=== PATIENT | male | born 1990 | race Two or more races ===

== ENCOUNTER 2020-02-07 19:16 | Emergency (ER) | payer SELFPAY ==
[~2020-02-07] VITALS: Ht 162.6 cm; Wt 81.6 kg
--- NOTE | 2020-02-07 19:45 | NUR ---
ED Nurse Note: Pt walked josé miguel the Ed due to shaking,chils and slight chest pain x 2 days. pt stated; he his roommate tested covid postive. pt has not beeen tested. According to the pt , he drinks 3-5 beers every 3days. pt is A&Ox4, awake ,and verbal. vitals; Bp 132/72 Hr 128 RR 23 O2 97 . No sob,cough,pain and fever at the moment.
[2020-02-07 19:50] VITALS: BP 138/87
[2020-02-07] MEDS ORDERED: LORazepam Inj 2mg/ml 1ml IV ONE ×2 (20:15→21:45)
[2020-02-07] MEDS ORDERED: Thiamine HCl 100 MG in D5W 55 ML IVPB ONE (20:15)
--- NOTE | 2020-02-07 20:18 | Emergency Room Report ---
History of Present Illness General Chief Complaint: General Complaint Source: Patient (Sourav Cherry) Present Illness HPI 30-year-old male with history of alcohol abuse here complaining of fever and chills as well as palpitation x2 days. Patient reports that he was living with a roommate who is positive for COVID-19 however he has not been living with him. Patient last exposed to roommate 5 days ago. Denies any nausea vomiting however complains of diarrhea. Reports that he used to drink 2-3 beers every day however has not been drinking since this past Friday. Denies any drug use. Denies tobacco smoke. Denies chest pain or shortness of breath. Denies diffuse abdominal pain. Patient speaking full sentences, memory appears to be intact. (Sourav Cherry) Allergies: Coded Allergies: No Known Allergies (Unverified , 02/07/20) COVID-19 Screening Contact w/high risk pt: Yes Experienced COVID-19 symptoms?: Yes COVID-19 Testing performed CHILD DEVELOPMENT ASSISTANT: No COVID-19 Screening: Negative COVID-19 (Sourav Cherry) Patient History Past Medical History: see triage record Past Surgical History: none Pertinent Family History: none Immunizations: UTD Reviewed Nursing Documentation: PMH: Agreed; PSxH: Agreed (Sourav Cherry) Nursing Documentation-PMH Past Medical History: No Stated History (Sourav Cherry) Review of Systems All Other Systems: negative except mentioned in HPI (Sourav Cherry) Physical Exam Vital Signs Date Time Temp Pulse Resp B/P (MAP) Pulse Ox O2 Delivery O2 Flow Rate FiO2 02/07/20 19:32 98.1 134 16 152/84 (106) 96 Room Air Sp02 EP Interpretation: reviewed, abnormal - Tachycardic General Appearance: alert, non-toxic, mild distress Head: normocephalic, atraumatic Eyes: bilateral eye normal inspection, bilateral eye PERRL ENT: EOM grossly intact, no angioedema, normal voice Neck: full range of motion, supple/symm/no masses Respiratory: no respiratory distress, no retraction, no accessory muscle use Cardiovascular #2: 2+ carotid (R), 2+ carotid (L), 2+ radial (R), 2+ radial (L), 2+ dorsalis pedis (R), 2+ dorsalis pedis (L) Gastrointestinal: normal bowel sounds, non tender, soft, non-distended, no guarding, no rebound Rectal: deferred Genitourinary: no CVA tenderness Musculoskeletal: back normal, pelvis stable, gait/station normal Neurologic: alert, motor strength/tone normal, oriented x3, sensory intact, responsive, speech normal Psychiatric: memory normal, no suicidal/homicidal ideation, anxious Skin: no rash, normal color Lymphatic: no adenopathy (Sourav Cherry) Medical Decision Making PA Attestation All diagnoses and treatment plans were reviewed and discussed with my supervising physician Dr. Luis (Sourav Cherry) Diagnostic Impression: Primary Impression: Alcohol withdrawal ER Course 30-year-old male with history of alcohol abuse here complaining of fever and chills as well as palpitation x2 days. Patient reports that he was living with a roommate who is positive for COVID-19 however he has not been living with him. Patient last exposed to roommate 5 days ago. Denies any nausea vomiting however complains of diarrhea. Reports that he used to drink 2-3 beers every day however has not been drinking since this past Friday. Denies any drug use. Denies tobacco smoke. Denies chest pain or shortness of breath. Denies diffuse abdominal pain. Patient speaking full sentences, memory appears to be intact. Ddx considered but are not limited to: Covid infection, alcohol intoxication with altered level of consciousness, alcohol intoxication causing pancreatitis, alcohol abuse, multi drug use and alcohol intoxication Vital signs: are WNL, pt. is afebrile H&PE are most consistent with: alcohol withdrawal ORDERS: CXR, CBC, CMP, UA, tox screen, troponin, ETOH serum ER intervention: NS bolus, folate, thiamine, Ativan I signed out the patient to Dr. Luis at 8:30PM (Sourav Cherry) ER Course Assumed care of the patient from the previous provider at approximately 2030. Please refer to initial note for full history and physical exam. Briefly, 30-year-old male history of regular alcohol use presents for evaluation of shakiness, chills and diarrhea. Was regularly using alcohol until 3 days ago. Roommate is positive for COVID-19. He denies shortness of breath or cough. Mild URI symptoms. Labs are returned within normal limits. Patient improved after receiving IV Ativan though still mildly tremulous and given another dose. X-ray shows no infiltrate. Patient should obtain outpatient COVID-19 testing and discussed this with him as well as instructed him to maintain quarantine precautions until tested. Will start on Librium for control of his tremors and withdrawal symptoms. Also prescribed thiamine and folate. Refer to outpatient alcohol abuse resources. Instructed not to drive or operate any machinery. Instructed to return with new or worsening symptoms. Laboratory Tests Test 02/07/20 20:20 02/07/20 20:25 White Blood Count 10.0 K/UL (4.8-10.8) Red Blood Count 5.38 M/UL (4.70-6.10) Hemoglobin 16.9 G/DL (14.2-18.0) Hematocrit 46.3 % (42.0-52.0) Mean Corpuscular Volume 86 FL (80-99) Mean Corpuscular Hemoglobin 31.4 PG (27.0-31.0) H Mean Corpuscular Hemoglobin Concent 36.5 G/DL (32.0-36.0) H Red Cell Distribution Width 14.6 % (11.6-14.8) Platelet Count 152 K/UL (150-450) Mean Platelet Volume 7.1 FL (6.5-10.1) Neutrophils (%) (Auto) 74.0 % (45.0-75.0) Lymphocytes (%) (Auto) 15.4 % (20.0-45.0) L Monocytes (%) (Auto) 9.0 % (1.0-10.0) Eosinophils (%) (Auto) 0.5 % (0.0-3.0) Basophils (%) (Auto) 1.2 % (0.0-2.0) Sodium Level 141 MMOL/L (136-145) Potassium Level 3.7 MMOL/L (3.5-5.1) Chloride Level 103 MMOL/L (98-107) Carbon Dioxide Level 25 MMOL/L (21-32) Anion Gap 13 mmol/L (5-15) Blood Urea Nitrogen 20 mg/dL (7-18) H Creatinine 1.1 MG/DL (0.55-1.30) Estimated Glomerular Filtration Rate > 60 mL/min (>60) Glucose Level 129 MG/DL (74-106) H Calcium Level 9.3 MG/DL (8.5-10.1) Total Bilirubin 0.9 MG/DL (0.2-1.0) Aspartate Amino Transferase (AST) 59 U/L (15-37) H Alanine Aminotransferase (ALT) 88 U/L (12-78) H Alkaline Phosphatase 75 U/L (46-116) Troponin I 0.009 ng/mL (0.000-0.056) Total Protein 9.2 G/DL (6.4-8.2) H Albumin 4.7 G/DL (3.4-5.0) Globulin 4.5 g/dL Albumin/Globulin Ratio 1.0 (1.0-2.7) Serum Alcohol < 3 mg/dL Urine Color Yellow Urine Appearance Slightly cloudy Urine pH 6 (4.5-8.0) Urine Specific [place] 1.030 (1.005-1.035) Urine Protein 4+ (NEGATIVE) H Urine Glucose (UA) Negative (NEGATIVE) Urine Ketones 2+ (NEGATIVE) H Urine Blood Negative (NEGATIVE) Urine Nitrite Negative (NEGATIVE) Urine Bilirubin 1+ (NEGATIVE) H Urine Ictotest Negative (NEGATIVE) Urine Urobilinogen 12 MG/DL (0.0-1.0) H Urine Leukocyte Esterase 1+ (NEGATIVE) H Urine RBC 0-2 /HPF (0 - 0) H Urine WBC 5-10 /HPF (0 - 0) H Urine Squamous Epithelial Cells Occasional /LPF Urine Bacteria Few /HPF (NONE) Urine Mucus Moderate /LPF (NONE/OCC) H Urine Opiates Screen Negative (NEGATIVE) Urine Barbiturates Screen Negative (NEGATIVE) Phencyclidine (PCP) Screen Negative (NEGATIVE) Urine Amphetamines Screen Negative (NEGATIVE) Urine Benzodiazepines Screen Negative (NEGATIVE) Urine Cocaine Screen Negative (NEGATIVE) Urine Marijuana (THC) Screen Negative (NEGATIVE) (Carson Luis MD) EKG Diagnostic Results Rate: tachycardiac Rhythm: other - Tachycardic ST Segments: no acute changes Other Impression No acute ST changes (Sourav Cherry) Troponin ordered: Yes (Carson Luis MD) Chest X-Ray Diagnostic Results Chest X-Ray Diagnostic Results : Chest X-Ray Ordered: Yes # of Views/Limited/Complete: 1 View Indication: Other EP Interpretation: Yes PA Xray: Interpretation reviewed, by supervising MD, and agrees with findings. Interpretation: no consolidation, no effusion, no pneumothorax, no acute cardiopulmonary disease Impression: No acute disease Electronically Signed by: Sourav Harper PA-C (Sourav Cherry) Chest X-Ray Diagnostic Results : Chest X-Ray Ordered: Yes Indication: Other - Tachycardia EP Interpretation: Yes Interpretation: no consolidation, no effusion, no acute cardiopulmonary disease Impression: No acute disease Electronically Signed by: Electronically signed by Dr. Carson Luis MD (Carson Luis MD) Last Vital Signs Date Time Temp Pulse Resp B/P (MAP) Pulse Ox O2 Delivery O2 Flow Rate FiO2 02/07/20 19:32 98.1 134 16 152/84 (106) 96 Room Air (Sourav Cherry) Disposition: HOME, SELF-CARE Condition: Stable Scripts Chlordiazepoxide Hcl* (LIBRIUM*) 10 Mg Capsule 10 MG ORAL THREE TIMES A DAY, #15 CAP 0 Refills Prov: Carson Luis MD 02/07/20 Folic Acid* (FOLIC ACID*) 1 Mg Tablet 1 MG ORAL DAILY for SUPPLEMENT, #30 TAB Prov: Carson Luis MD 02/07/20 Thiamine Hcl* (VITAMIN B-1*) 100 Mg Tablet 100 MG ORAL DAILY, #30 TAB 0 Refills Prov: Carson Luis MD 02/07/20 Referrals: NOT CHOSEN [facility]/,REFERRING (PCP) Sourav Cherry Feb 07, 2020 20:17 Carson Luis MD Feb 07, 2020 20:38
[2020-02-07 20:51] LABS: BASOPHILS % (AUTO) 1.2 % (0.0-2.0); EOSINOPHILS % (AUTO) 0.5 % (0.0-3.0); HEMATOCRIT 46.3 % (42.0-52.0); HEMOGLOBIN 16.9 G/DL (14.2-18.0); LYMPHOCYTES % (AUTO) 15.4 % (20.0-45.0); MEAN CORPUSCULAR VOLUME 86 FL (80-99); PLATELET COUNT 152 K/UL (150-450); RED BLOOD COUNT 5.38 M/UL (4.70-6.10); RED CELL DISTRIBUTION WIDTH 14.6 % (11.6-14.8)
[2020-02-07 21:01] LABS: APPEARANCE,URINE SLIGHTLY CLOUDY; BILIRUBIN, URINE 1+ (NEGATIVE); GLUCOSE, URINE (UA) NEGATIVE (NEGATIVE); KETONES,URINE 2+ (NEGATIVE); LEUKOCYTE ESTERASE ,URINE 1+ (NEGATIVE); NITRITE,URINE NEGATIVE (NEGATIVE); PH,URINE 6 (4.5-8.0); PROTEIN,URINE 4+ (NEGATIVE); UROBILINOGEN,URINE 12 MG/DL (0.0-1.0)
[2020-02-07 21:07] LABS: COLOR,URINE YELLOW
[2020-02-07 21:15] LABS: ANION GAP 13 mmol/L (5-15); BLOOD UREA NITROGEN 20 mg/dL (7-18); CALCIUM 9.3 MG/DL (8.5-10.1); CARBON DIOXIDE 25 MMOL/L (21-32); CHLORIDE 103 MMOL/L (98-107); CREATININE 1.1 MG/DL (0.55-1.30); POTASSIUM 3.7 MMOL/L (3.5-5.1); SODIUM 141 MMOL/L (136-145)
[2020-02-07 21:19] LABS: ALANINE AMINOTRANSFERASE 88 U/L (12-78); ALBUMIN 4.7 G/DL (3.4-5.0); ALKALINE PHOSPHATASE 75 U/L (46-116); ASPARTATE AMINO TRANSFERASE 59 U/L (15-37); BILIRUBIN,TOTAL 0.9 MG/DL (0.2-1.0)
[2020-02-07] MEDS ORDERED: FOLIC ACID1 MG ORAL (21:40)
[2020-02-07] MEDS ORDERED: LIBRIUM10 MG ORAL ×2 (21:40→21:41)
[2020-02-07] MEDS ORDERED: VITAMIN B-1100 MG ORAL (21:40)
[2020-02-07 22:05] VITALS: BP 132/69
--- NOTE | 2020-02-07 22:05 | NUR ---
ER DISCHARGE NOTE: Patient is cleared to be discharged per ERMD, pt is aox4, on room air, with stable vital signs. pt was given dc and prescription instructions, pt was able to verbalize understanding, pt id band and iv site removed without complications. pt is able to ambulate with steady gait. pt took all belongings.ED Nurse Note:
--- NOTE | 2020-02-08 09:35 | Diagnostic Imaging Report ---
Indication: Chest pain Technique: XRAY Chest 1v Comparison: None Findings: Heart size and mediastinal contours are within normal limits for AP technique. There is no focal airspace consolidation, pneumothorax or pleural effusion. Osseous structures demonstrate no acute abnormality. Impression: No radiographic evidence of acute cardiopulmonary disease.
== END 2020-02-07 22:05 | disposition home or self-care (01) ==
LOC: EDBD → EMR 19:58
DX: F10.239 Alcohol dependence with withdrawal, unspecified (principal); R50.9 Fever, unspecified; R00.2 Palpitations; R19.7 Diarrhea, unspecified; Z20.828 Contact with and (suspected) exposure to other viral communicable diseases
CPT/HCPCS: 36415; 71045; 80053; 80307; 81003; 84484; 85025; 93005; 96361; 96365; 96375; 96376; 99284; G0480; J7030

== ENCOUNTER 2020-02-08 13:58 | Emergency (ER) | payer SELFPAY ==
[~2020-02-08] VITALS: Ht 172.7 cm; Wt 72.6 kg
[~2020-02-08 13:58] MED LIST: FOLIC ACID1 MG ORAL; LIBRIUM10 MG ORAL; VITAMIN B-1100 MG ORAL
--- NOTE | 2020-02-08 14:41 | NUR ---
ED Nurse Note: Patient ambulated to ed c/o hallucinations s/p not sleeping for 24 hours. pt was at [facility] for alcohol withdrawal. pt present with alochol withdrawal; symptoms, aggressions, diaphoresis, shaking. pt last drink was friday. hr 105, other vss, nad noted, a/ox4, bengali speaking, ambulatory.
[2020-02-08 14:42] VITALS: BP 121/71
[2020-02-08] MEDS ORDERED: Magnesium Sulfate 2,000 MG, Folic Acid 1 MG, Multivitamin - 12 Injection 10 ML in Sodiu... IV ONE (15:00)
[2020-02-08] MEDS ORDERED: PHENOBARBITAL IVP ONE ×3 (15:00→16:45)
--- NOTE | 2020-02-08 15:02 | Emergency Room Report ---
History of Present Illness General Chief Complaint: General Complaint Source: Patient Present Illness HPI 29-year-old male history of alcohol withdrawal, presents with signs and symptoms of alcohol withdrawal, feels shaky, ongoing since 02/03 last drink, aggravated by not having alcohol severity moderate, constant patient presents for evaluation and treatment Allergies: Coded Allergies: No Known Allergies (Unverified , 02/07/20) COVID-19 Screening Contact w/high risk pt: No Experienced COVID-19 symptoms?: No COVID-19 Testing performed BEARINGIZER: No Patient History Past Medical History: see triage record Social History: Reports: alcohol use Reviewed Nursing Documentation: PMH: Agreed; PSxH: Agreed Nursing Documentation-PMH Past Medical History: No Stated History Review of Systems All Other Systems: negative except mentioned in HPI Physical Exam Vital Signs Date Time Temp Pulse Resp B/P (MAP) Pulse Ox O2 Delivery O2 Flow Rate FiO2 02/08/20 14:03 97.7 105 19 121/71 (88) 100 Room Air Sp02 EP Interpretation: reviewed, normal General Appearance: well appearing, no apparent distress, alert Head: normocephalic, atraumatic Eyes: bilateral eye PERRL, bilateral eye EOMI ENT: uvula midline, moist mucus membranes Neck: supple, thyroid normal, supple/symm/no masses Respiratory: lungs clear, no respiratory distress, no retraction, no accessory muscle use Cardiovascular #1: normal peripheral pulses, no edema, no gallop, no murmur, tachycardia Gastrointestinal: non tender, soft, no guarding, no rebound Musculoskeletal: normal inspection Neurologic: alert, oriented x3 Psychiatric: mood/affect normal Skin: no rash, warm/dry Medical Decision Making Diagnostic Impression: Primary Impression: Alcohol withdrawal Qualified Codes: F10.230 - Alcohol dependence with withdrawal, uncomplicated ER Course 29 year old male presents with mild alcohol withdrawal. Patient given phenobarb to bridge him until he can get to a program. No tongue fasciculations, no tremulousness, patient reports he will go to a treatment center list of treatment centers provided the patient Disposition home with return precautions follow-up with PCP Laboratory Tests Test 02/08/20 15:00 02/08/20 15:35 White Blood Count 7.5 K/UL (4.8-10.8) Red Blood Count 4.47 M/UL (4.70-6.10) L Hemoglobin 14.1 G/DL (14.2-18.0) L Hematocrit 39.7 % (42.0-52.0) L Mean Corpuscular Volume 89 FL (80-99) Mean Corpuscular Hemoglobin 31.5 PG (27.0-31.0) H Mean Corpuscular Hemoglobin Concent 35.5 G/DL (32.0-36.0) Red Cell Distribution Width 13.0 % (11.6-14.8) Platelet Count 130 K/UL (150-450) L Mean Platelet Volume 8.6 FL (6.5-10.1) Neutrophils (%) (Auto) 64.9 % (45.0-75.0) Lymphocytes (%) (Auto) 17.7 % (20.0-45.0) L Monocytes (%) (Auto) 15.3 % (1.0-10.0) H Eosinophils (%) (Auto) 0.5 % (0.0-3.0) Basophils (%) (Auto) 1.6 % (0.0-2.0) Urine Color Yellow Urine Appearance Clear Urine pH 5 (4.5-8.0) Urine Specific [place] 1.020 (1.005-1.035) Urine Protein 3+ (NEGATIVE) H Urine Glucose (UA) Negative (NEGATIVE) Urine Ketones 1+ (NEGATIVE) H Urine Blood 1+ (NEGATIVE) H Urine Nitrite Negative (NEGATIVE) Urine Bilirubin Negative (NEGATIVE) Urine Urobilinogen 4 MG/DL (0.0-1.0) H Urine Leukocyte Esterase 1+ (NEGATIVE) H Urine RBC 0-2 /HPF (0 - 0) H Urine WBC 0-2 /HPF (0 - 0) Urine Squamous Epithelial Cells Occasional /LPF Urine Bacteria Occasional /HPF (NONE) Urine Mucus Moderate /LPF (NONE/OCC) H Sodium Level 139 MMOL/L (136-145) Potassium Level 3.5 MMOL/L (3.5-5.1) Chloride Level 102 MMOL/L (98-107) Carbon Dioxide Level 30 MMOL/L (21-32) Anion Gap 7 mmol/L (5-15) Blood Urea Nitrogen 19 mg/dL (7-18) H Creatinine 0.9 MG/DL (0.55-1.30) Estimated Glomerular Filtration Rate > 60 mL/min (>60) Glucose Level 85 MG/DL (74-106) Calcium Level 8.9 MG/DL (8.5-10.1) Phosphorus Level 4.6 MG/DL (2.5-4.9) Magnesium Level 2.2 MG/DL (1.8-2.4) Total Bilirubin 0.9 MG/DL (0.2-1.0) Aspartate Amino Transferase (AST) 65 U/L (15-37) H Alanine Aminotransferase (ALT) 86 U/L (12-78) H Alkaline Phosphatase 63 U/L (46-116) Total Protein 8.7 G/DL (6.4-8.2) H Albumin 4.3 G/DL (3.4-5.0) Globulin 4.4 g/dL Albumin/Globulin Ratio 1.0 (1.0-2.7) Salicylates Level 0.4 ug/mL (2.8-20) L Urine Opiates Screen Negative (NEGATIVE) Acetaminophen Level < 2 MCG/ML (10-30) L Urine Barbiturates Screen Negative (NEGATIVE) Phencyclidine (PCP) Screen Negative (NEGATIVE) Urine Amphetamines Screen Negative (NEGATIVE) Urine Benzodiazepines Screen Negative (NEGATIVE) Urine Cocaine Screen Negative (NEGATIVE) Urine Marijuana (THC) Screen Negative (NEGATIVE) Serum Alcohol < 3 mg/dL POC Whole Blood Glucose 118 MG/DL (74-106) H EKG Diagnostic Results Troponin ordered: No EKG Time: 14:53 EP Interpretation: NSR, rate 90, QTc 428, no acute ST elevations, normal axis Last Vital Signs Date Time Temp Pulse Resp B/P (MAP) Pulse Ox O2 Delivery O2 Flow Rate FiO2 02/08/20 14:42 97.7 105 19 121/71 100 Room Air Disposition: HOME, SELF-CARE Condition: Stable Referrals: NOT CHOSEN [facility]/,REFERRING (PCP) [facility] Patient Instructions: Alcohol Withdrawal, [id number] Additional Instructions: The patient was provided with discharge instructions, notified to follow-up with a primary care doctor and or specialist in the next 24-48 hours, and to return to the ED if they have worsening of their symptoms. Please note that this report is being documented using DRAGON technology. This can lead to erroneous entry secondary to incorrect interpretation by the dictating instrument. Taj Tuttle MD Feb 08, 2020 15:02
[2020-02-08 15:51] LABS: APPEARANCE,URINE CLEAR; BASOPHILS % (AUTO) 1.6 % (0.0-2.0); BILIRUBIN, URINE NEGATIVE (NEGATIVE); EOSINOPHILS % (AUTO) 0.5 % (0.0-3.0); GLUCOSE, URINE (UA) NEGATIVE (NEGATIVE); HEMATOCRIT 39.7 % (42.0-52.0); HEMOGLOBIN 14.1 G/DL (14.2-18.0); KETONES,URINE 1+ (NEGATIVE); LEUKOCYTE ESTERASE ,URINE 1+ (NEGATIVE); LYMPHOCYTES % (AUTO) 17.7 % (20.0-45.0); MEAN CORPUSCULAR VOLUME 89 FL (80-99); MONOCYTES % (AUTO) 15.3 % (1.0-10.0); NEUTROPHILS % (AUTO) 64.9 % (45.0-75.0); NITRITE,URINE NEGATIVE (NEGATIVE); PH,URINE 5 (4.5-8.0); PLATELET COUNT 130 K/UL (150-450); PROTEIN,URINE 3+ (NEGATIVE); RED BLOOD COUNT 4.47 M/UL (4.70-6.10); UROBILINOGEN,URINE 4 MG/DL (0.0-1.0); WHITE BLOOD COUNT 7.5 K/UL (4.8-10.8)
[2020-02-08 15:52] LABS: COLOR,URINE YELLOW
[2020-02-08 16:01] LABS: ANION GAP 7 mmol/L (5-15); BLOOD UREA NITROGEN 19 mg/dL (7-18); CALCIUM 8.9 MG/DL (8.5-10.1); CARBON DIOXIDE 30 MMOL/L (21-32); CHLORIDE 102 MMOL/L (98-107); CREATININE 0.9 MG/DL (0.55-1.30); POTASSIUM 3.5 MMOL/L (3.5-5.1); SODIUM 139 MMOL/L (136-145)
[2020-02-08 16:04] LABS: PHOSPHORUS 4.6 MG/DL (2.5-4.9)
[2020-02-08 16:07] LABS: ALANINE AMINOTRANSFERASE 86 U/L (12-78); ALBUMIN 4.3 G/DL (3.4-5.0); ALKALINE PHOSPHATASE 63 U/L (46-116); ASPARTATE AMINO TRANSFERASE 65 U/L (15-37); BILIRUBIN,TOTAL 0.9 MG/DL (0.2-1.0)
--- NOTE | 2020-02-08 17:26 | NUR ---
ED Nurse Note: pt removed iv access.
[2020-02-08 17:40] VITALS: BP 121/71
--- NOTE | 2020-02-08 17:41 | NUR ---
ED Nurse Note: Pt cleared by health care Provider for discharge. DC instructions/prescription was given and explained to pt and verbalized understanding of teachings. All medical deviecs such as ID band and iv removed. Pt is AAO x3-4, ambulatory and left with all personal belongings.
== END 2020-02-08 17:41 | disposition home or self-care (01) ==
LOC: EMR 14:53
DX: F10.230 Alcohol dependence with withdrawal, uncomplicated (principal); Y90.0 Blood alcohol level of less than 20 mg/100 ml
CPT/HCPCS: 36415; 80053; 80307; 81003; 82962; 83735; 84100; 85025; 96365; 96375; 96376; 99284; G0480; J2560; J3475; J3490; J7030